=== PATIENT | female | born 1990 | race Caucasian/White ===

== ENCOUNTER 2020-03-01 20:08 | Emergency (ER) | payer OTHER ==
[~2020-03-01] VITALS: Ht 162.6 cm; Wt 83.0 kg
[2020-03-01] MEDS ORDERED: HYDROCODONE/ACETAMINOPHEN 5/325MG TABLET PO ONE (20:30)
[2020-03-01] MEDS ORDERED: KETOROLAC 60MG/2ML VIAL IM ONE (20:30)
[2020-03-02 12:35] VITALS: BP 111/60
== END 2020-03-02 12:41 | disposition home or self-care (01) ==
LOC: ER 20:08
DX: S06.9X9A Unspecified intracranial injury with loss of consciousness of unspecified duration, initial encounter (principal); Z98.890 Other specified postprocedural states; Z90.89 Acquired absence of other organs; Z75.1 Person awaiting admission to adequate facility elsewhere; Y08.89XA Assault by other specified means, initial encounter; Y07.03 Male partner, perpetrator of maltreatment and neglect; Y93.89 Activity, other specified; Y92.018 Other place in single-family (private) house as the place of occurrence of the external cause
CPT/HCPCS: 70486; 81025; 93005; 96372; 99285; J1885